=== PATIENT | male | born 1960 | race Caucasian/White ===

== ENCOUNTER 2020-06-23 18:32 | Emergency (ER) | payer OTHER, SELFPAY ==
[2020-06-23] VITALS (8 sets, daily range): BP systolic 116–133; BP diastolic 59–64; PULSE 55–68; RESP 16; TEMP 36.6; O2SAT 97–99; BMI 29.8
--- NOTE | 2020-06-23 19:08 | ED.HA ---
HPI - Headache General Chief Complaint: Headache Stated Complaint: sick, chills, headache Time Seen by Provider: 06/23/20 19:08 Source: patient and family (son) Limitations: no limitations History of Present Illness HPI Narrative: This is a 60-year-old male who comes emergency department complaint of headache that is been intermittent since June 16. Patient states he was seen in [place], [place] had the emergency department and sounds like he had some workup there. He also followed as his primary care physician there. At that time he was told he had some elevated liver enzymes and a high white count but no other changes. Sounds like he did have imaging of his and clear but was a CT or MRI or both. Patient states he has had a headache, he denies fevers, he denies acute vision changes but states he has had some slow vision changes over the years. He denies any nausea or vomiting. He denies any weakness numbness or tingling in his extremities. Denies any chest pain, shortness of breath, bowel or bladder incontinence. He has chronic constipation but does have bowel movements semi regularly. He denies any urinary issues. He denies any other medical issues besides recreational methamphetamine use. Patient states he ingests by smoking methamphetamines. Denies any IV use. Patient states he uses daily and his last use was yesterday. He denies any prior surgeries. Positive for tobacco use, he denies any alcohol. He is here in town visiting family. His headache initially started while traveling in [place] to [place] and drove home to [place] via car. They drove to [place] from [place]. Review of Systems Review of Systems ROS Unobtainable: All systems reviewed & are unremarkable except as noted in HPI and below Patient History Social History Smoking Status: Current every day smoker Smoking Status: Current every day smoker Substance Use Type: methamphetamine Exam Narrative Exam Narrative: GEN: well nourished, male, alert and oriented x 3, patient appears to be in moderate distress. Patient moaning on bed but does stop to answer questions during evaluation. HEENT: Atraumatic, pupils are equal round reactive to light, no photophobia, extraocular movements are intact, no nystagmus, nares are clear, TMs are clear with no fluid, there is no conjunctival pallor. Throat is clear without any exudates, erythema, tonsillar enlargement or uvular deviation, no facial droop. No meningeal signs. HEART: Regular rate and rhythm without murmur, clicks, rubs. Pulses are equal in upper extremities LUNGS:Lungs clear to auscultation, no wheezes, rales, crackles, chest moves symmetrically, tachypnea accessory muscle use. ABD:bowel sounds normal, soft, non-tender, no guarding, rebound, rigidity, no masses noted, no hepatosplenomegaly :No CVA tenderness MSCL: Non-tender, no muscle atrophy, muscles strength 5/5 upper and lower extremities, full range of motion. NEURO:CN 2-12 intact, sensation normal, reflexes 2/4 in upper and lower extremities, patient did have very delayed response to lower extremities after reflex response, finger nose finger test normal, heel carlisle test normal. SKIN: no rash, erythema or other skin changes appreciated. Initial Vital Signs Initial Vital Signs: Vital Signs Temperature 98 F 06/23/20 18:42 Pulse Rate 64 06/23/20 18:42 Respiratory Rate 16 06/23/20 18:42 Blood Pressure 128/63 06/23/20 18:42 Pulse Oximetry 97 06/23/20 18:42 Scores GCS Darius coma scale eye opening: Spontaneous Sandy coma scale verbal response: Orientated Sandy coma scale motor response: Obey commands Sandy coma scale total score: 15 Course Orders Ordered: ED Orders 06/23/20 22:18 COVID19 Stat Discontinued Medications Diphenhydramine HCl (Diphenhydramine 50 Mg/Ml Vial) 25 mg IV NOW ONE Stop: 06/23/20 19:23 Last Admin: 06/23/20 19:48 Dose: 25 mg Documented by: ED Sodium Chloride (Normal Saline 0.9%) 1,000 mls @ 1,000 mls/hr IV BOLUS ONE Stop: 06/23/20 20:21 Last Infusion: 06/23/20 21:15 Dose: 0 mls/hr Documented by: Admin: 06/23/20 19:48 Dose: 1,000 mls/hr Documented by: ED Ketorolac Tromethamine (Ketorolac 60 Mg/2 Ml Vial) 30 mg IV NOW ONE Stop: 06/23/20 20:07 Last Admin: 02/20/21 20:23 Dose: 30 mg Documented by: ALDO Metoclopramide HCl (Metoclopramide 10 Mg/2 Ml Inj) 10 mg IV NOW ONE Stop: 06/23/20 19:23 Last Admin: 06/23/20 19:48 Dose: 10 mg Documented by: ED Reevaluation(s) Reevaluation #1: Patient sleeping after benadryl. Updated family on lab findings and they also states that he does not use alcohol, they have not seen prior and patient also denies. Time: 20:34 Reevaluation #2: Patient sleepy but awakens, he did receive reglan and benadryl. Reviewed labs and imaging. Patient Na is consistent with recent prior and Time: 22:14 Reevaluation #3: Patient states he feels better and is requesting to return home. Reviewed todays findings with patient and son and in comparison to his findings from ER visit in [place]. Time: 23:10 Vital Signs Vital signs: Vital Signs - 8 hr 06/23/20 23:29 Pulse Rate 62 Respiratory Rate 16 Blood Pressure 133/64 Pulse Oximetry 99 MDM - Headache Lab Data Attestation: I reviewed the patient's lab results. Result diagrams: 06/23/20 19:30 06/23/20 19:30 Labs: Lab Results 06/23/20 06/23/20 06/23/20 Range/Units 19:30 19:30 19:30 WBC 8.0 (4.5-11.0) X10^3/uL RBC 4.10 L (4.5-5.9) X10^6/uL Hgb 13.5 (13.5-17.5) g/dL Hct 38.5 L (41-53) % MCV 93.8 (80-100) fL MCH 32.8 (26-34) PG MCHC 35.0 (30-36) % RDW 14.1 (11.6-14.8) % Plt Count 198 (150-400) X10^3/uL Neut % (Auto) 76.2 H (50-75) % Lymph % (Auto) 14.9 L (25-40) % Christian % (Auto) 7.2 (3-14) % Eos % (Auto) 1.2 L (2-4) % Baso % (Auto) 0.5 (0-2) % Neut # (Auto) 6100 (8190-4756) /uL Lymph # (Auto) 1200 (2673-9955) /uL Christian # (Auto) 600 (0-900) /uL Eos # (Auto) 100 (0-450) /uL Baso # (Auto) 0 (0-100) /uL PT 11.8 (10.1-12.7) SECONDS INR 1.0 (0.9-1.3) APTT 30 (26.4-36.2) SECONDS Sodium 129 L (137-145) mmol/L Potassium 4.0 (3.4-5.1) mmol/L Chloride 100 (98-107) mmol/L Carbon Dioxide 23 (22-32) mmol/L BUN 23 H (9-20) mg/dL Creatinine 0.78 (0.66-1.25) mg/dL Estimated GFR > 60.0 (>60) mL/min BUN/Creatinine Ratio 29.5 H (6-22) Glucose 116 H (70-100) mg/dL Calcium 8.7 (8.4-10.2) mg/dL Total Bilirubin 0.8 (0.2-1.3) mg/dL AST 63 H (17-59) IU/L ALT 182 H (<50) IU/L Alkaline Phosphatase 484 H (38-126) U/L Total Protein 6.8 (6.3-8.2) g/dL Albumin 3.4 L (3.5-5.0) g/dL Globulin 3.4 (1.7-4.1) g/dL Albumin/Globulin Ratio 1.0 (1.0-2.8) Procalcitonin 0.94 H (<0.5) ng/mL SARS-CoV-2 (PCR) (Negative) 06/23/20 Range/Units 22:18 WBC (4.5-11.0) X10^3/uL RBC (4.5-5.9) X10^6/uL Hgb (13.5-17.5) g/dL Hct (41-53) % MCV (80-100) fL MCH (26-34) PG MCHC (30-36) % RDW (11.6-14.8) % Plt Count (150-400) X10^3/uL Neut % (Auto) (50-75) % Lymph % (Auto) (25-40) % Christian % (Auto) (3-14) % Eos % (Auto) (2-4) % Baso % (Auto) (0-2) % Neut # (Auto) (3541-9660) /uL Lymph # (Auto) (5796-6397) /uL Christian # (Auto) (0-900) /uL Eos # (Auto) (0-450) /uL Baso # (Auto) (0-100) /uL PT (10.1-12.7) SECONDS INR (0.9-1.3) APTT (26.4-36.2) SECONDS Sodium (137-145) mmol/L Potassium (3.4-5.1) mmol/L Chloride (98-107) mmol/L Carbon Dioxide (22-32) mmol/L BUN (9-20) mg/dL Creatinine (0.66-1.25) mg/dL Estimated GFR (>60) mL/min BUN/Creatinine Ratio (6-22) Glucose (70-100) mg/dL Calcium (8.4-10.2) mg/dL Total Bilirubin (0.2-1.3) mg/dL AST (17-59) IU/L ALT (<50) IU/L Alkaline Phosphatase (38-126) U/L Total Protein (6.3-8.2) g/dL Albumin (3.5-5.0) g/dL Globulin (1.7-4.1) g/dL Albumin/Globulin Ratio (1.0-2.8) Procalcitonin (<0.5) ng/mL SARS-CoV-2 (PCR) Negative (Negative) Imaging Data CT scan - head: Radiologist's Impression: [address] [id number] Scan ReportSigned Patient: Duc Gomez LATIAR#: [id number]: 1960Acct:[id number]/Sex: 60 / MDate of Service: 06/23/20Loc: EDAccession Number: [id number] Procedure: CT head/brain wo con Ordering Provider: Whitney Valle D.O. PROCEDURE: CT HEAD/BRAIN WO CON INDICATIONS: headache, intermittent TECHNIQUE: Noncontrast 4.5 mm thick angled axial sections acquired from the foramen magnum to the vertex, with coronal and sagittal reformats. For radiation dose reduction, the following was used: automated exposure control, adjustment of mA and/or kV according to patient size. COMPARISON: None. FINDINGS: Image quality: Excellent. CSF spaces: Basal cisterns are patent. No extra-axial fluid collections. Ventricles are normal in size and shape. Brain: No midline shift. No intracranial masses or hemorrhage. Grant-white matter interface is normal. Skull and face: Calvarium and visualized facial bones are intact, without suspicious lesions. Sinuses: Visualized sinuses and mastoids are clear. IMPRESSION: Negative head CT. No evidence acute stroke, hemorrhage, or mass. Dictated by: Alberto Lopez M.D. on 06/23/2020 at 20:00 Approved by: Alberto Lopez M.D. on 06/23/2020 at 20:01 US - abdomen: Radiologist's Impression: [address] [id number] ReportSigned Patient: Duc Gomez JMR#: [id number]: 1960Acct:[id number]/Sex: 60 / MDate of Service: 06/23/20Loc: EDAccession Number: [id number] Procedure: US abdomen complete Ordering Provider: Whitney Valle D.O. PROCEDURE: US ABDOMEN COMPLETE INDICATIONS: elevated liver enzymes, procal TECHNIQUE: Real-time scanning was performed of the abdominal and retroperitoneal organs, with image documentation. COMPARISON: [facility], CT, CT HEAD/BRAIN WO CON, 06/23/2020, 19:27. FINDINGS: Liver: The liver is normal in size and demonstrates no focal lesions. Gallbladder: No findings of gallstones or sludge are seen. The gallbladder wall is not thickened, measuring 3 mm or less. No specific pericholecystic fluid is seen. The sonographic Rene sign is negative. Biliary ducts: Intrahepatic bile ducts are non-dilated. Extrahepatic bile duct caliber measures 3 mm. Normal is 6-7 mm or less in diameter, or 10 mm or less post-cholecystectomy. Pancreas: Visualized portions of the pancreas are sonographically normal. Spleen: Spleen is normal in size and homogeneous in echotexture. Kidneys: Kidneys are normal in size and echotexture. Right kidney measures 12.6 cm long; left kidney measures 12.9 cm long. No hydronephrosis or nephrolithiasis. No solid masses. Aorta: Visualized aorta is normal in caliber at less than 3 cm. Iliacs: Not seen, obscured by overlying bowel gas. IVC: Intrahepatic inferior vena cava is patent. Miscellaneous: No free abdominal fluid. IMPRESSION: Normal appearing liver by ultrasound. The gallbladder demonstrates a normal sonographic appearance. No biliary dilatation is seen. Dictated by: Mc Kennedy M.D. on 06/23/2020 at 20:38 Approved by: Mc Kennedy M.D. on 06/23/2020 at 20:40 MDM Narrative Medical decision making narrative: This is a 60-year-old male comes with complaint of headache chills, feeling unwell. Patient does not have known medical history other than a recreation methamphetamine use. He use most recently yesterday and states he uses daily. He denies any IV use and states he is only smokes. Patient had a workup in organ that included CT of the chest, labs as well as a hepatitis profile as he had elevated liver enzymes at that time. His a B and C hepatitis panel were negative. He did follow up with his primary care told him he was fine.He since again developed similar symptoms. Discussed with patient I do not have any clear source today, blood cultures are pending. Patient has been afebrile. Does not have any neurologic changes or symptoms other than headache that are concerning for meningitis. Patient did respond to treatment here in the department. Ultrasound did not show any acute findings of the gallbladder or liver that would describe his elevated liver enzymes. COVID swab was retested it was negative in or again and is negative here today. At discharge patient ambulated to the bathroom in than out of the emergency department without any issue. Discharge Plan Departure Patient Disposition: Home Clinical Impression: Headache, Hyponatremia, Elevated liver enzymes Activity Restrictions/Additional Instructions: Follow up in the next 48-72 hours for recheck. I have not found a clear source for your symptoms today. We did find that your liver enzymes are elevated but do look improved from your priors at your ER visit in [place]. It is unclear if this is related to your current symptoms. You may take ibuprofen up to 800 mg every 8 hours for pain. It is recommended that you avoid methamphetamines. Return to the ER here or the closest emergency department if you have fevers, rapidly worsening headache, vision changes, new chest pain, shortness of breath, passing out, persistent vomiting, new weakness, numbness or difficulty with movement.
--- NOTE | 2020-06-23 19:22 | DI.CT.S_ITS ---
PROCEDURE: CT HEAD/BRAIN WO CON INDICATIONS: headache, intermittent TECHNIQUE: Noncontrast 4.5 mm thick angled axial sections acquired from the foramen magnum to the vertex, with coronal and sagittal reformats. For radiation dose reduction, the following was used: automated exposure control, adjustment of mA and/or kV according to patient size. COMPARISON: None. FINDINGS: Image quality: Excellent. CSF spaces: Basal cisterns are patent. No extra-axial fluid collections. Ventricles are normal in size and shape. Brain: No midline shift. No intracranial masses or hemorrhage. Grant-white matter interface is normal. Skull and face: Calvarium and visualized facial bones are intact, without suspicious lesions. Sinuses: Visualized sinuses and mastoids are clear. IMPRESSION: Negative head CT. No evidence acute stroke, hemorrhage, or mass. Dictated by: Alberto Lopez M.D. on 06/23/2020 at 20:00 Approved by: Alberto Lopez M.D. on 06/23/2020 at 20:01
[2020-06-23 19:37] LABS: Add Manual Diff / Slide Review NO; Basophils Absolute Auto 0 /uL (0-100); Basophils Percent Auto 0.5 % (0-2); Eosinophils Absolute Auto 100 /uL (0-450); Eosinophils Percent Auto 1.2 % (2-4); Hematocrit 38.5 % (41-53); Hemoglobin 13.5 g/dL (13.5-17.5); Lymphocytes Absolute Auto 1200 /uL (1100-4500); Lymphocytes Percent Auto 14.9 % (25-40); Mean Corpuscular Hemoglobin 32.8 PG (26-34); Mean Corpuscular Volume 93.8 fL (80-100); Monocytes Absolute Auto 600 /uL (0-900); Monocytes Percent Auto 7.2 % (3-14); Neutrophils Absolute Auto 6100 /uL (1500-7000); Neutrophils Percent Auto 76.2 % (50-75); Platelet Count 198 X10^3/uL (150-400); Red Cell Distribution Width 14.1 % (11.6-14.8)
[2020-06-23 19:43] LABS: Prothrombin Time 11.8 SECONDS (10.1-12.7)
[2020-06-23 19:46] LABS: PTT Partial Thromboplastin Tim 30 SECONDS (26.4-36.2)
[2020-06-23 19:47] LABS: Alanine Aminotransferase 182 IU/L (<50); Albumin 3.4 g/dL (3.5-5.0); Alkaline Phosphatase 484 U/L (38-126); Aspartate Aminotransferase 63 IU/L (17-59); BUN Creatinine Ratio 29.5 (6-22); Bilirubin Total 0.8 mg/dL (0.2-1.3); Blood Urea Nitrogen 23 mg/dL (9-20); Calcium 8.7 mg/dL (8.4-10.2); Carbon Dioxide 23 mmol/L (22-32); Chloride 100 mmol/L (98-107); Estimated Glomerular Filt Rate > 60.0 mL/min (>60); Globulin 3.4 g/dL (1.7-4.1); Glucose 116 mg/dL (70-100); HEMOLYSIS < 15 (0-50); Sodium 129 mmol/L (137-145); Total Protein 6.8 g/dL (6.3-8.2)
[2020-06-23] MEDS: diphenhydrAMINE 50 MG/ML VIAL 25 MG IV (19:48)
[2020-06-23] MEDS: SODIUM CHLORIDE 0.9% 1,000 ML 1000 ML IV (19:48)
[2020-06-23] MEDS: METOCLOPRAMIDE 10 MG/2 ML INJ IV (19:48)
[2020-06-23 20:03] LABS: Procalcitonin 0.94 ng/mL (<0.5)
[2020-06-23] MEDS: KETOROLAC 60 MG/2 ML VIAL 30 MG IV (20:23)
--- NOTE | 2020-06-23 20:38 | DI.US.S_ITS ---
PROCEDURE: US ABDOMEN COMPLETE INDICATIONS: elevated liver enzymes, procal TECHNIQUE: Real-time scanning was performed of the abdominal and retroperitoneal organs, with image documentation. COMPARISON: [facility], CT, CT HEAD/BRAIN WO CON, 06/23/2020, 19:27. FINDINGS: Liver: The liver is normal in size and demonstrates no focal lesions. Gallbladder: No findings of gallstones or sludge are seen. The gallbladder wall is not thickened, measuring 3 mm or less. No specific pericholecystic fluid is seen. The sonographic Rene sign is negative. Biliary ducts: Intrahepatic bile ducts are non-dilated. Extrahepatic bile duct caliber measures 3 mm. Normal is 6-7 mm or less in diameter, or 10 mm or less post-cholecystectomy. Pancreas: Visualized portions of the pancreas are sonographically normal. Spleen: Spleen is normal in size and homogeneous in echotexture. Kidneys: Kidneys are normal in size and echotexture. Right kidney measures 12.6 cm long; left kidney measures 12.9 cm long. No hydronephrosis or nephrolithiasis. No solid masses. Aorta: Visualized aorta is normal in caliber at less than 3 cm. Iliacs: Not seen, obscured by overlying bowel gas. IVC: Intrahepatic inferior vena cava is patent. Miscellaneous: No free abdominal fluid. IMPRESSION: Normal appearing liver by ultrasound. The gallbladder demonstrates a normal sonographic appearance. No biliary dilatation is seen. Dictated by: Mc Kennedy M.D. on 06/23/2020 at 20:38 Approved by: Mc Kennedy M.D. on 06/23/2020 at 20:40
[2020-06-23 22:43] LABS: COVID19 -Nasal RAPID Negative (Negative)
== END 2020-06-23 23:30 | disposition home or self-care (01) ==
PROVIDERS: Emergency Provider Emergency Medicine
DX: R51.9 Headache, unspecified (principal); E87.1 Hypo-osmolality and hyponatremia; R74.8 Abnormal levels of other serum enzymes; Z20.822 Contact with and (suspected) exposure to COVID-19
CPT/HCPCS: 36415; 70450; 76700; 80053; 84145; 85025; 85610; 85730; 87040; 87635; 96361; 96374; 96375; 99284; C9803; J1200; J1885; J2765